=== PATIENT | male | born 1955 | race Caucasian/White ===

== ENCOUNTER 2018-01-02 08:56 | Emergency (ER) | payer MEDICARE, BC ==
--- NOTE | 2018-01-02 09:51 | ER Document Report ---
ED Hand/Wrist Injury - General Chief Complaint: Finger Injury Stated Complaint: FINGER INJURY Time Seen by Provider: 01/02/18 09:50 Mode of Arrival: Ambulatory Information source: Patient Notes: 62-year-old male presents to ED for complaint of injury to his right thumb. He states he was using a table saw and sliced off part of his thumb. Bleeding is controlled at this time. Patient is alert and oriented, pupils equal and react to light, patient is able to speak in full sentences. Respirations are regular and unlabored, and patient is able to walk with the even gait. TRAVEL OUTSIDE OF THE [place] IN LAST 30 DAYS: No - HPI Injury to: Thumb - Part of the end of his thumb cut off with a table saw Onset: Just prior to arrival Where: Home, Outdoors Timing: Still present Quality of pain: Achy Severity: Mild Pain Level: 2 Context: Other - Sliced off part of his thumb with a table saw - Related Data Allergies/Adverse Reactions: clopidogrel bisulfate [From Plavix] Allergy (Verified 06/16/17 23:31) Past Medical History - General Information source: Patient - Social History Smoking Status: Current Every Day Smoker Cigarette use (# per day): Yes - 4 cigs a day family member recently passed Chew tobacco use (# tins/day): No Smoking Education Provided: Yes - 4min Frequency of alcohol use: Social Drug Abuse: None Lives with: Family Family History: Reviewed & Not Pertinent Patient has suicidal ideation: No Patient has homicidal ideation: No - Past Medical History Cardiac Medical History: Reports: Hx Congestive Heart Failure, Hx Coronary Artery Disease, Hx Heart Attack - 5, Hx Hypercholesterolemia, Hx Hypertension, Other - On blood thinner effient Pulmonary Medical History: Reports: None EENT Medical History: Reports: None Neurological Medical History: Reports: Hx Cerebrovascular Accident Endocrine Medical History: Reports: Hx Diabetes Mellitus Type 2 Renal/ Medical History: Reports: None Malignancy Medical History: Reports None GI Medical History: Reports: Hx Gastroesophageal Reflux Disease, Hx Colonoscopy , Hx Endoscopy Musculoskeltal Medical History: Reports Hx Multiple Sclerosis, Reports Hx Musculoskeletal Deformity Skin Medical History: Reports None Psychiatric Medical History: Reports: None Traumatic Medical History: Reports: None Infectious Medical History: Reports: None Past Surgical History: Reports: Hx Cardiac Catheterization - 5, Hx Cholecystectomy, Hx Coronary Stent - 5, Hx Orthopedic Surgery - 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 bone removed from right hand - Immunizations Hx Diphtheria, Pertussis, Tetanus Vaccination: Yes Review of Systems - Review of Systems Constitutional: No symptoms reported EENT: No symptoms reported Cardiovascular: No symptoms reported Respiratory: No symptoms reported Gastrointestinal: No symptoms reported Genitourinary: No symptoms reported Male Genitourinary: No symptoms reported Musculoskeletal: Other - Sliced off the end of his right thumb table saw Skin: Other - Sliced off the end of the right thumb with table saw Hematologic/Lymphatic: No symptoms reported Neurological/Psychological: No symptoms reported -: Yes All other systems reviewed and negative Physical Exam - Vital signs Vitals: Temp Pulse Resp BP Pulse Ox 98.2 F 72 16 137/92 H 96 01/02/18 09:15 01/02/18 09:15 01/02/18 09:15 01/02/18 09:15 01/02/18 09:15 Interpretation: Normal - General General appearance: Appears well, Alert - HEENT Head: Normocephalic, Atraumatic Eyes: Normal Pupils: PERRL - Respiratory Respiratory status: No respiratory distress Chest status: Nontender Breath sounds: Normal Chest palpation: Normal - Cardiovascular Rhythm: Regular Heart sounds: Normal auscultation Murmur: No - Abdominal Inspection: Normal Distension: No distension Bowel sounds: Normal Tenderness: Nontender Organomegaly: No organomegaly - Back Back: Normal, Nontender - Extremities General upper extremity: Normal color, Normal ROM, Normal temperature General lower extremity: Normal inspection, Nontender, Normal color, Normal ROM , Normal temperature, Normal weight bearing. No: Herrera's sign Hand: Tender, Nail injury, No evidence of human bite, No evidence of FB, Other - Placed off the end of his right finger with a table saw - Neurological Neuro grossly intact: Yes Cognition: Normal Orientation: AAOx4 [place] Coma Scale Eye Opening: Spontaneous [place] Coma Scale Verbal: Oriented [place] Coma Scale Motor: Obeys Commands [place] Coma Scale Total: 15 Speech: Normal Motor strength normal: LUE, RUE, LLE, RLE Sensory: Normal - Psychological Associated symptoms: Normal affect, Normal mood - Skin Skin Temperature: Warm Skin Moisture: Dry Skin Color: Normal Course - Re-evaluation Re-evalutation: 01/02/18 11:08 Out of fracture noted on x-ray. Patient was given report of x-ray and discharged home with a dressing to the avulsion injury to his right thumb. Xeroform gauze and then normal guys and then a splint applied to the thumb. Patient was given instructions on cleaning the area and redress them tomorrow and then follow-up with primary doctor the next day. Patient was also sent home with prescription for Keflex. Patient was offered narcotic medication but states he did not need that he will use Tylenol and Motrin for his discomfort. Patient was instructed to elevate the injury. Patient verbalized understanding of instructions and agreement with treatment plan. - Vital Signs Vital signs: Temp Pulse Resp BP Pulse Ox 98.2 F 72 16 137/92 H 96 01/02/18 09:15 01/02/18 09:15 01/02/18 09:15 01/02/18 09:15 01/02/18 09:15 - Diagnostic Test Radiology reviewed: Image reviewed, Reports reviewed Discharge - Discharge Clinical Impression: Avulsion injury right thumb Condition: Stable Disposition: HOME, SELF-CARE Additional Instructions: Avulsion Injury You have an avulsion injury -- a loss of skin which can't be helped by suturing. When large, these injuries can require skin grafting. Smaller defects or shallow avulsions usually heal well with dressings. Keep the dressing clean and dry. If the bandage becomes wet, remove it, blot the area dry, and apply a fresh dressing. Change the dressings every day. Complete healing may take anywhere from 10 days to two months. The healing time depends on the size and depth of the avulsion and on the amount of crushing of underlying tissues. Re-examination by the physician is often necessary. If any signs of infection occur (swelling, redness, increasing tenderness, red streaks, profuse purulent drainage from the avulsion, tender lumps in the armpit or groin above the avulsion, or fever), see your doctor immediately. SOAP CLEANSING: Gently wash the wound daily using a mild soap (like Ivory, Phisoderm, Neutrogena). Use warm water, rubbing gently until all debris, ooze, and crusting have been washed from the wound. Allow to dry briefly (about 10 minutes) after cleaning. Repeat this cleansing at least three times a day for the first two days and then once or twice a day. ANTIBIOTIC OINTMENT PROTECTION: Your wounds are such that dressing them is not practical or optional. After cleansing, you should apply a thin coating of antibiotic ointment ( Bacitracin, not Neosporin) to the wounds at least three times daily. This lessens infection risk, and may decrease the amount of scarring. Use a q-tip or dull butter knife, not your finger, to apply this ointment. Any debris or ooze which builds up in the ointment should be gently rubbed off with a sterile gauze pad. Harder crusting may need to be gently scrubbed off with a clean wash cloth with soap and warm water, perhaps applying a warm, wet wash cloth to the wound for ten minutes first. Development of redness, severe itching, or blistering may mean allergy to the ointment. See the doctor. Cephalexin The antibiotic you've been prescribed is a member of the cephalosporin class. This type of antibiotic covers a wide variety of infections, including those of the skin, lungs, and urinary tract. It's useful for staph infections. This antibiotic is slightly similar to the penicillin family. In rare cases , a person who is allergic to penicillin will also be allergic to this medication. If you have had a severe allergic reaction to penicillin, and have not taken this antibiotic since that time, notify your doctor. Antibiotics which cover many germs ("broad spectrum" antibiotics) are more likely to cause diarrhea or "yeast" infections. Women prone to vaginal yeast problems may suffer an attack after taking this antibiotic. In infants, oral thrush (white spots "stuck" on the cheek) or yeast diaper rash may result. See your doctor if these problems occur. Call at once if you develop itching, hives , shortness of breath, or lightheadedness. Elevate the Injury Because of the nature of your injury, elevation will be helpful to reduce swelling. This also reduces infection risk in wounds. Keep the injury up above the level of your heart for at least the next 48 hours (or longer if the physician recommends it). FOLLOW-UP CARE: Please return in __2___ days for an infection check and dressing change. If you have been referred to another physician for follow-up care, call that physicians office for an appointment as you were instructed. If you experience a significant change in your laceration, or if you are concerned there may be an infection (swelling, redness, drainage, increasing tenderness, red streaks, tender lumps in the armpit or groin above the laceration, or fever) , return to the Emergency Department immediately re-evaluation. Prescriptions: Cephalexin [Cephalexin 500 MG Capsule] 1 cap PO QID #28 cap Forms: Elevated Blood Pressure, Smoking Cessation Education Referrals: CROW BURNS PA-C [Primary Care Provider] - Follow up as needed
--- NOTE | 2018-01-02 10:48 | RADIOLOGY REPORT (SQ) ---
EXAM DESCRIPTION: FINGER RIGHT COMPLETED DATE/TIME: 01/02/2018 10:18 am REASON FOR STUDY: cut right thumb injury to the distal thumb finger tip with table saw, initial coun ter, open wound COMPARISON: None. NUMBER OF VIEWS: Three views. TECHNIQUE: AP, lateral, and oblique images acquired of the right thumb. LIMITATIONS: None. FINDINGS: MINERALIZATION: Normal. BONES: No acute fracture or dislocation. Old nonunited avulsion fracture dorsal base right thumb dis [place] phalanx. SOFT TISSUES: Partial amputation of the right thumb finger tip soft tissues, radial aspect fingernail . No underlying bony injury to the tuft, distal phalanx right thumb. OTHER: No other significant finding. IMPRESSION: Amputation of finger tip soft tissues without underlying defect in the distal tuft, righ t thumb distal phalanx. Old well corticated avulsion fragment off the dorsal base right thumb distal phalanx. COMMENT: SITE OF TRAUMA/COMPLAINT MARKED/STAMP COMPLETED: Yes TECHNICAL DOCUMENTATION: JOB ID: [id number] [employer] All Rights Reserved Reading location - IP/workstation name: [id number]
[2018-01-02] MEDS ORDERED: CEPHALEXIN 500 MG CAPSULE PO ONE (11:04)
[2018-01-02 11:23] VITALS: BP 122/82
== END 2018-01-02 11:17 | disposition home or self-care (01) ==
LOC: ER 08:56
DX: S61.101A Unspecified open wound of right thumb with damage to nail, initial encounter (principal); W29.8XXA Contact with other powered hand tools and household machinery, initial encounter; Y92.009 Unspecified place in unspecified non-institutional (private) residence as the place of occurrence of the external cause; I25.10 Atherosclerotic heart disease of native coronary artery without angina pectoris; I10 Essential (primary) hypertension; I25.2 Old myocardial infarction; E11.9 Type 2 diabetes mellitus without complications; F17.210 Nicotine dependence, cigarettes, uncomplicated; Z71.6 Tobacco abuse counseling; Z88.8 Allergy status to other drugs, medicaments and biological substances
CPT/HCPCS: 99283; 73140; A9270

== ENCOUNTER 2018-12-13 05:42 | Inpatient (IN) | payer MEDICARE, BC ==
[2018-12-13] MEDS ORDERED: LIDOCAINE 2% URO-JET 5 ML KIT MM ONE (06:09)
[2018-12-13 06:18] LABS: HEMATOCRIT 41.3 % (37.9-51.0); HEMOGLOBIN 14.4 g/dL (13.5-17.0); MEAN CORPUSCULAR HEMOGLOBIN 28.4 pg (27.0-33.4); MEAN CORPUSCULAR HGB CONC 34.8 g/dL (32.0-36.0); MEAN CORPUSCULAR VOLUME 82 fl (80-97); PLATELET COUNT 199 10^3/uL (150-450); RED BLOOD COUNT 5.05 10^6/uL (4.35-5.55); RED CELL DISTRIBUTION WIDTH 13.4 % (11.5-14.0); WHITE BLOOD COUNT 5.8 10^3/uL (4.0-10.5)
[2018-12-13 06:22] LABS: INTERNATIONAL RATION (INR) 0.87; PARTIAL THROMBOPLASTIN TIME 32.5 SEC (23.5-35.8)
[2018-12-13 06:26] LABS: PROTHROMBIN TIME 12.3 SEC (11.4-15.4)
[2018-12-13 06:34] LABS: ALANINE AMINOTRANSFERASE 38 U/L (21-72); ALBUMIN 3.9 g/dL (3.5-5.0); ALKALINE PHOSPHATASE 69 U/L (38-126); ANION GAP 10 (5-19); ASPARTATE AMINO TRANSFERASE 29 U/L (17-59); BILIRUBIN,DIRECT 0.2 mg/dL (0.0-0.4); BILIRUBIN,TOTAL 0.6 mg/dL (0.2-1.3); BLOOD UREA NITROGEN 21 mg/dL (7-20); CALCIUM 9.1 mg/dL (8.4-10.2); CARBON DIOXIDE 25 mmol/L (22-30); CHLORIDE 111 mmol/L (98-107); CREATINE KINASE 295 U/L (55-170); GLUCOSE 153 mg/dL (75-110); POTASSIUM 4.1 mmol/L (3.6-5.0); SODIUM 146.1 mmol/L (137-145); TOTAL PROTEIN 6.3 g/dL (6.3-8.2)
--- NOTE | 2018-12-13 06:35 | ER Document Report ---
ED Neuro Symptoms/Deficit - General Chief Complaint: Weakness Stated Complaint: WEAKNESS Time Seen by Provider: 12/13/18 06:09 Primary Care Provider: CROW BURNS PA-C [Primary Care Provider] - Follow up as needed TRAVEL OUTSIDE OF THE [place] IN LAST 30 DAYS: No - HPI Notes: Patient is a 63-year-old male that presents to the emergency department for chief complaint of right arm and leg numbness and weakness. Patient states while sitting at home last night at 10 PM watching TV he had acute onset of right arm and leg numbness. He also states that he was having a hard time doing [id number] with his right arm. His symptoms have been constant and unchanged since onset at 10 PM yesterday. He does report 2 days of intermittent left-sided parietal headaches. He states the headache was mild and throbbing. The headache would last for 1 to 2 hours and then resolved. He currently denies headache. He denies any vision changes or difficulty speaking. He does report history of stroke in the past but denies any chronic deficits. He is on Effient for history of ID with coronary stenting. Patient denies any associated chest pain or difficulty breathing. Past Medical History: MS, hypertension, hyperlipidemia, diabetes, CAD, stroke, ID Past Surgical History: Coronary stenting x3 Social History: Denies tobacco alcohol and drug use Family History: Reviewed and noncontributory for presenting illness Allergies: Reviewed, see documented allergy list. REVIEW OF SYSTEMS: CONSTITUTIONAL : No fever No chills No diaphoresis No recent illness EENT: No vision changes No congestion No sore throat CARDIOVASCULAR: No chest pain No palpitations RESPIRATORY: No shortness of breath No cough No difficulty breathing GASTROINTESTINAL: No abdominal pain No nausea No vomiting No diarrhea GENITOURINARY: No dysuria No hematuria No difficulty urinating MUSCULOSKELETAL: No back pain No leg pain No arm pain SKIN: No rashes No lesions LYMPHATIC: No swollen, enlarged glands. NEUROLOGICAL: No lightheadedness No headache weakness paresthesias PSYCHIATRIC: No anxiety No depression PHYSICAL EXAMINATION: Vital signs reviewed, nursing noted reviewed. GENERAL: Well-appearing, well-nourished and in no acute distress. HEAD: Atraumatic, normocephalic. EYES: Eyes appear normal, extraocular movements intact, sclera anicteric, conjunctiva are normal. ENT: nares patent, oropharynx clear without exudates. Moist mucous membranes. NECK: Normal range of motion, supple without lymphadenopathy LUNGS: Breath sounds clear to auscultation bilaterally and equal. No wheezes rales or rhonchi. HEART: Regular rate and rhythm without murmurs ABDOMEN: Soft, nontender, normoactive bowel sounds. No rebound, guarding, or rigidity. No masses appreciated. EXTREMITIES: Nontender, good range of motion, no pitting or edema. NEUROLOGICAL:NIH=3, Moves all extremities spontaneously. Right arm ataxia, decreased sensation in right arm and right leg, right leg weakness PSYCH: Normal mood, normal affect. SKIN: Warm, Dry, normal turgor, no rashes or lesions noted on exposed skin - Related Data Allergies/Adverse Reactions: clopidogrel bisulfate [From Plavix] Allergy (Verified 06/16/17 23:31) Past Medical History - Social History Smoking Status: Never Smoker Family History: Reviewed & Not Pertinent - Past Medical History Cardiac Medical History: Reports: Hx Congestive Heart Failure, Hx Coronary Artery Disease, Hx Heart Attack - 5, Hx Hypercholesterolemia, Hx Hypertension Pulmonary Medical History: Reports: Hx COPD Neurological Medical History: Reports: Hx Cerebrovascular Accident Endocrine Medical History: Reports: Hx Diabetes Mellitus Type 2 Renal/ Medical History: Denies: Hx Peritoneal Dialysis GI Medical History: Reports: Hx Gastroesophageal Reflux Disease, Hx Colonoscopy, Hx Endoscopy Musculoskeletal Medical History: Reports Hx Multiple Sclerosis, Reports Hx Musculoskeletal Deformity Past Surgical History: Reports: Hx Cardiac Catheterization - 5, Hx Cardiac Surgery - stents placed, Hx Cholecystectomy, Hx Coronary Stent - 5, Hx Orthopedic Surgery - 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 bone removed from right hand - Immunizations Hx Diphtheria, Pertussis, Tetanus Vaccination: Yes Course - Re-evaluation Re-evalutation: 12/13/18 06:34 Vitals reviewed. Nursing notes reviewed. Patient symptoms started at 10 PM yesterday and he is outside the window for TPA. He does have an NIH of 3 concerning for new acute stroke. EKG shows no STEMI. 12/13/18 07:[address] scan shows no intracranial hemorrhage or other acute pathology. The remainder of his work-up is unremarkable. He was given aspirin for concern of possible stroke. Patient's symptoms on reevaluation are unchanged. He will be admitted to the hospital for further stroke work-up. Patient is in agreement with this plan of care. His care was discussed with Dr. Mario who accepted admission. Laboratory 12/13/18 12/13/18 12/13/18 06:00 06:00 06:00 WBC 5.8 RBC 5.05 Hgb 14.4 Hct 41.3 MCV 82 MCH 28.4 MCHC 34.8 RDW 13.4 Plt Count 199 Total Counted 100 Seg Neutrophils % Not Reportable Seg Neuts % (Manual) 82 H Lymphocytes % Not Reportable Lymphocytes % (Manual) 4 L Monocytes % Not Reportable Monocytes % (Manual) 10 Eosinophils % Not Reportable Eosinophils % (Manual) 4 Basophils % Not Reportable Basophils % (Manual) 0 Absolute Neutrophils Not Reportable Abs Neuts (Manual) 4.8 Absolute Lymphocytes Not Reportable Abs Lymphs (Manual) 0.2 L Absolute Monocytes Not Reportable Abs Monocytes (Manual) 0.6 Absolute Eosinophils Not Reportable Absolute Eos (Manual) 0.2 Absolute Basophils Not Reportable Abs Basophils (Manual) 0.0 Platelet Comment ADEQUATE RBC Morph Comment MN PT 12.3 INR 0.87 APTT 32.5 Sodium 146.1 H Potassium 4.1 Chloride 111 H Carbon Dioxide 25 Anion Gap 10 BUN 21 H Creatinine 1.13 Est GFR ( Amer) > 60 Est GFR (Non-Af Amer) > 60 Glucose 153 H POC Glucose Calcium 9.1 Total Bilirubin 0.6 Direct Bilirubin 0.2 Neonat Total Bilirubin Not Reportable Neonat Direct Bilirubin Not Reportable Neonat Indirect Bili Not Reportable AST 29 ALT 38 Alkaline Phosphatase 69 Creatine Kinase 295 H CK-MB (CK-2) Troponin I Total Protein 6.3 Albumin 3.9 12/13/18 12/13/18 06:00 06:03 WBC RBC Hgb Hct MCV MCH MCHC RDW Plt Count Total Counted Seg Neutrophils % Seg Neuts % (Manual) Lymphocytes % Lymphocytes % (Manual) Monocytes % Monocytes % (Manual) Eosinophils % Eosinophils % (Manual) Basophils % Basophils % (Manual) Absolute Neutrophils Abs Neuts (Manual) Absolute Lymphocytes Abs Lymphs (Manual) Absolute Monocytes Abs Monocytes (Manual) Absolute Eosinophils Absolute Eos (Manual) Absolute Basophils Abs Basophils (Manual) Platelet Comment RBC Morph Comment PT INR APTT Sodium Potassium Chloride Carbon Dioxide Anion Gap BUN Creatinine Est GFR ( Amer) Est GFR (Non-Af Amer) Glucose POC Glucose 145 H Calcium Total Bilirubin Direct Bilirubin Neonat Total Bilirubin Neonat Direct Bilirubin Neonat Indirect Bili AST ALT Alkaline Phosphatase Creatine Kinase CK-MB (CK-2) 2.97 Troponin I < 0.012 Total Protein Albumin Chest X-Ray 12/13/18 06:09 IMPRESSION: No acute cardiopulmonary process copyright 2010 [employer]- All Rights Reserved Head CT 12/13/18 06:09 IMPRESSION: 1. No acute intracranial abnormality by CT criteria. This exam was performed according to our departmental dose-optimization program, which includes automated exposure control, adjustment of the mA and/or kV according to patient size and/or use of iterative reconstruction technique. - Laboratory Result Diagrams: 12/13/18 06:00 12/13/18 06:00 Laboratory results interpreted by me: 12/13/18 06:03 POC Glucose 145 H - EKG Interpretation by Me Additional EKG results interpreted by me: 12/13/18 06:34 Interpreted by myself [id number]: Normal sinus rhythm, rate 77, normal axis, no STEMI, old inferior infarct ED NIH Stroke Scale - NIH Stroke Scale *: 1. NIH scale should be completed with appropriate accompanying assessment tools. *: 2. The NIH should reflect what the patient is capable of doing and should not be coached by the clinician. 1a. Level of Consciousness: 0=Alert;keenly responsive -: 1=Drowsy -: 2=Obtunded -: 3=Coma/unresponsive or reflex to noxious stimuli. 1a. Responses: 0 1b. Orientation Questions: a. What month is it? -: b. How old are you? -: 0=Answers both questions correctly. -: 1=Answers one question correctly or patient is intubated or has orotracheal trauma. -: 2=Answers neither question correctly. 1b. Responses: 0 1c. Response to commands: a. Open and close eyes? -: b. Plant Electrician and release hand? -: Credit is given despite weakness. Demonstration of task is permitted. Substitute command if hands cannot be used. -: 0=Performs both tasks correctly -: 1=Performs one task correctly -: 2=Performs neither task correctly 1c. Responses: 0 2. Gaze: Establish eye contact and instruct patient to "Follow my finger" -: 0=Normal -: 1=Partial gaze palsy. Gaze is abnormal in one or both eyes, but where forced deviation or total gaze paresis is not present. -: 2=Forced deviation or total gaze paresis. 2. Responses: 0 3. Visual Limon: Sees fingers in all four quadrants. -: 0=No visual loss. -: 1=Partial hemianopsia. -: 2=Complete hemianopsia. -: 3=Bilateral hemianopsia (including Cortical blindness) 3. Responses: 0 4. Facial Movement: Instruct patient to: -: a. Show me your teeth -: b. Raise your eyebrows -: c. Close your eyes -: d. Smile -: 0=Normal symmetrical movement -: 1=Minor paralysis (flattened nasolabial fold, asymmetry on smiling). -: 2=Partial paralysis (total or near total paralysis of lower face). -: 3=Complete paralysis of upper and lower face 4. Responses: 0 5. Motor functions (left arm): Alternate sides and extend each arm with palms down (90 degrees if sitting or 45 degrees for supine). -: 0=No drift;limb holds for full 10 seconds. -: 1=Drift; limb holds but drifts down before full 10 seconds, but does not hit bed. -: 2=Some effort against gravity; limb cannot get to or maintain position. -: 3=No effort against gravity; limb falls. -: 4=No movement. -: UN=Amputation, joint fusion, explain in comments. 5. Responses (left arm): 0 5. Motor Functions (right arm): Alternate sides and extend each arm with palms down (90 degrees if sitting or 45 degrees for supine). -: 0=No drift;limb holds for full 10 seconds. -: 1=Drift; limb holds but drifts down before full 10 seconds, but does not hit bed. -: 2=Some effort against gravity; limb cannot get to or maintain position. -: 3=No effort against gravity; limb falls. -: 4=No movement. -: UN=Amputation, joint fusion, explain in comments. 5. Responses (right arm): 0 6. Motor Functions (left leg): With patient lying supine, alternate sides and extend each leg (30 degrees always while supine). -: 0=No drift, leg holds position for full 5 seconds -: 1=Drift; leg falls before full 5 seconds but does not hit bed. -: 2=Some effort against gravity, leg falls to bed but some effort against gravity. -: 3=No effort against gravity, leg falls to bed immediately. -: 4=No movement. -: UN=Amputation, joint fusion; explain in comments. 6. Responses (left leg): 0 6. Motor Functions (right leg): With patient lying supine, alternate sides and extend each leg (30 degrees always while supine). -: 0=No drift, leg holds position for full 5 seconds -: 1=Drift; leg falls before full 5 seconds but does not hit bed. -: 2=Some effort against gravity, leg falls to bed but some effort against gravity. -: 3=No effort against gravity, leg falls to bed immediately. -: 4=No movement. -: UN=Amputation, joint fusion; explain in comments. 6. Responses (right leg): 1 7. Limb Ataxia: With eyes open instruct patient to: -: a. "Touch your finger to your nose". -: b. "Touch your heel to your borges" -: 0=Absent -: 1=Present in one limb. -: 2=Present in two limbs. -: UN=Amputation or joint fusion; explain in comments. 7. Responses: 1 7. If ataxia present choose as appropriate: Right arm 8. Sensory: Test sensation using pinprick or noxious stimuli. Test as many body parts as possible. -: 0=Normal;no sensory loss -: 1=Mile to moderate sensory loss (patient feels pin prick but is less sharp on affected side). -: 2=Severe or total sensory loss. 8. Responses: 1 9. Best Language: Instruct patient to: -: a. "Describe what you see in this picture." -: b. "Name the items in this picture." -: c. "Read these sentences." -: 0=No aphasia, normal -: 1=Mild to moderate aphasia. -: 2=Severe aphasia -: 3=Mute, global aphasia, no usable speech or auditory comprehension. 9. Responses: 0 10. Articulation, Dysarthia: Instruct patient to: -: "Read these words" or "Repeat these words" -: 0=Normal -: 1=Mild to moderate; patient may slur some words but can be understood without difficulty. -: 2=Severe; patients speech so slurred as to be unintelligible in the absence of dysphasia. -: UN=Intubated or other physical barrier, explain in comments. 10. Responses: 0 11. Extinction or inattention: 0=No abnormality -: 1= Visual, tactile, auditory, spatial, or personal inattention or extinction to bilateral simulation in one or the sensory modalities. -: 2=Profound hilda-inattention or hilda-inattention to more than one modality; does not recognize own hand. 11. Responses: 0 Total Score: 3 Discharge - Discharge Clinical Impression: Right sided numbness, Ataxia of right upper extremity, Right leg weakness Condition: Stable Disposition: ADMITTED INPATIENT Admitting Provider: Fabiano (Hospitalist) Unit Admitted: IMCU Referrals: CROW BURNS PA-C [Primary Care Provider] - Follow up as needed
[2018-12-13 06:45] LABS: ABSOLUTE LYMPHOCYTES# (MANUAL) 0.2 10^3/uL (0.5-4.7); ABSOLUTE MONOCYTES # (MANUAL) 0.6 10^3/uL (0.1-1.4); ABSOLUTE NEUTROPHILS# (MANUAL) 4.8 10^3/uL (1.7-8.2); BASOPHILS % (MANUAL) 0 % (0-2); EOSINOPHILS % (MANUAL) 4 % (0-6); LYMPHOCYTES % (MANUAL) 4 % (13-45); MONOCYTES % (MANUAL) 10 % (3-13); PLATELET COMMENT ADEQUATE; RBC MORPHOLOGY COMMENT MN; SEGMENTED NEUTROPHILS % (MAN) 82 % (42-78); TOTAL CELLS COUNTED 100
[2018-12-13 06:46] LABS: CREATINE KINASE MB 2.97 ng/mL (<4.55)
[2018-12-13 06:49] LABS: TROPONIN I < 0.012 ng/mL
--- NOTE | 2018-12-13 06:58 | RADIOLOGY REPORT (SQ) ---
EXAM DESCRIPTION: XR CHEST 1 VIEW COMPLETED DATE/TME: 12/13/2018 06:09 CLINICAL HISTORY: 63 years, Male, right side numbness COMPARISON: 07/25/2012 chest NUMBER OF VIEWS: 1 TECHNIQUE: Portable chest LIMITATIONS: None. FINDINGS: Heart size is normal. Mild elevation right hemidiaphragm. Lungs are clear. No pneumothorax IMPRESSION: No acute cardiopulmonary process copyright 2010 [employer]- All Rights Reserved
--- NOTE | 2018-12-13 06:59 | RADIOLOGY REPORT (SQ) ---
EXAM DESCRIPTION: CT HEAD WITHOUT IV CONTRAST COMPLETED DATE/TME: 12/13/2018 06:09 CLINICAL HISTORY: right side numbness COMPARISON: None available TECHNIQUE: Axial CT of the head obtained from the skull apex to the skull base without contrast. FINDINGS: No acute intracranial hemorrhage identified. No mass, mass effect, shift of the midline, abnormal extra-axial fluid collection or CT evidence of acute ischemic change identified. The ventricular system and sulcal spaces are mildly enlarged compatible with mild cerebral atrophy. Scattered areas of hypodensity throughout the supratentorial white matter are nonspecific and may be related to chronic small vessel ischemic change. Focal area of encephalomalacia involving the left cerebellum suggesting remote infarction. Remote lacunar type infarction involving the right caudate nucleus. The visualized paranasal sinuses and the mastoids are clear. No skull fracture identified. Visualized orbits and globes are unremarkable. Atherosclerotic calcification of the intracranial internal carotid arteries. DLP: 1096.98 mGy-cm IMPRESSION: 1. No acute intracranial abnormality by CT criteria. This exam was performed according to our departmental dose-optimization program, which includes automated exposure control, adjustment of the mA and/or kV according to patient size and/or use of iterative reconstruction technique.
[2018-12-13] MEDS ORDERED: ASPIRIN 325 MG TABLET PO ONE (07:09)
[2018-12-13] MEDS ORDERED: ONDANSETRON 4 MG TAB.RAPDIS PO PRN (08:41)
[2018-12-13] MEDS ORDERED: ACETAMINOPHEN 325 MG TABLET PO PRN (08:41)
[2018-12-13] MEDS ORDERED: ONDANSETRON HCL INJ/PF 4 MG/2 ML SDV IV PRN (08:41)
[2018-12-13] MEDS ORDERED: NITROGLYCERIN 0.4 MG/TAB 25 TAB/BOTTLE SL PRN (09:05)
[2018-12-13] MEDS ORDERED: GLUCAGON,HUMAN RECOMB 1 MG INJ IM PRN (09:06)
[2018-12-13] MEDS ORDERED: DEXTROSE 40% GEL 15 GM TUBE PO PRN ×2 (09:06)
[2018-12-13] MEDS ORDERED: DEXTROSE 50%-WATER 25 GM/50 ML DISP.SYRIN IV PRN ×2 (09:06)
[2018-12-13] MEDS ORDERED: TIZANIDINE HCL 4 MG TABLET PO PRN (09:07)
[2018-12-13] MEDS ORDERED: FUROSEMIDE 40 MG TABLET PO SCH (10:00)
[2018-12-13] MEDS ORDERED: METOPROLOL SUCCINATE PO SCH (10:00)
[2018-12-13] MEDS ORDERED: ASPIRIN 81 MG TABLET, CHEWABLE PO SCH (10:00)
[2018-12-13] MEDS ORDERED: [UNRECOGNIZED DRUG - OTHER] PO SCH ×2 (10:00→19:00)
[2018-12-13] MEDS: METFORMIN HCL 500 MG TABLET PO SCH (10:10)
[2018-12-13] MEDS: ASPIRIN 81 MG TABLET, ENT COATED PO SCH (10:10)
[2018-12-13] MEDS: LOSARTAN POTASSIUM 50 MG TABLET PO SCH (10:10)
[2018-12-13] MEDS: FLUOXETINE HCL 20 MG CAPSULE PO SCH (10:10)
[2018-12-13] MEDS: METOPROLOL SUCCINATE 50 MG TAB.SR.24H PO SCH (10:10)
[2018-12-13] MEDS: POTASSIUM CHLORIDE 20 MEQ PACKET PO SCH (10:10)
[2018-12-13] MEDS: FUROSEMIDE 40 MG TABLET PO SCH (10:23)
[2018-12-13] MEDS ORDERED: PRASUGREL HCL 10 MG TABLET PO SCH ×2 (10:30→11:00)
--- NOTE | 2018-12-13 12:13 | RADIOLOGY REPORT (SQ) ---
EXAM DESCRIPTION: MRI HEAD WITHOUT COMPLETED DATE/TIME: 12/13/2018 11:58 am REASON FOR STUDY: Acute CVA COMPARISON: CT brain 09/30/2008, 12/13/2018 TECHNIQUE: Multiplanar imaging includes non-contrasted T1, T2, FLAIR, and diffusion with ADC map seq uences. Images stored on PACS. LIMITATIONS: None. FINDINGS: ANATOMY: No developmental anomalies. Normal vascular flow voids. Pituitary fossa normal. CSF SPACES: Normal in size and contour. No hemorrhage. CEREBRUM: There is moderate white matter disease with increased FLAIR/ T2 signal in the deep perivent ricular white matter from patient's known multiple sclerosis. No acute demyelinating plaques are addison pected on the diffusion-weighted images. Old lacunar infarcts are present in the left thalamus, bilateral caudate, left lateral basal ganglia. No MR evidence of acute ischemic change, acute intracranial hemorrhage, mass effect, or midline hayes ft. POSTERIOR FOSSA: Old infarct in the left posterior inferior cerebellar artery distribution, inferior left cerebellar hemisphere on axial image 8. Moderate chronic small vessel ischemic change in the mi d yan axial T2 image 11. No acute ischemic change or acute demyelinating process in the posterior fo ssa. DIFFUSION IMAGING: Negative for acute or sub-acute infarction. ORBITS: No masses. Globes normal. PARANASAL SINUSES: No fluid levels. Mucosa normal. OTHER: No other significant finding. IMPRESSION: Old left inferior cerebellar infarct Old lacunar infarcts in the left thalamus, bilateral caudate, left lateral basal ganglia. Moderate s mall vessel disease in the mid yan. Multiple deep periventricular bifrontal and biparietal white matter lesions worrisome for a mass. No acute white matter lesions on today's imaging EVIDENCE OF ACUTE STROKE: NO. TECHNICAL DOCUMENTATION: JOB ID: [id number] [employer]- All Rights Reserved Reading location - IP/workstation name: [email or web address]
[2018-12-13] MEDS: INSULIN LISPRO 100 UNIT/ML 3 ML VIAL SUBCUT SCH ×3 (12:25→22:04)
[2018-12-13] MEDS: HEPARIN SOD (PORCINE) 5,000 UNIT/ML 1 ML SYRINGE SUBCUT SCH ×2 (14:03→22:05)
--- NOTE | 2018-12-13 15:15 | RADIOLOGY REPORT (SQ) ---
EXAM DESCRIPTION: CAROTID DOPPLER COMPLETED DATE/TIME: 12/13/2018 2:59 pm REASON FOR STUDY: Acute CVA, Hx diffuse atherosclerosis COMPARISON: None. TECHNIQUE: Grayscale ultrasound, Doppler velocity and spectra, and color Doppler images acquired of the extra-cranial carotid and vertebral arteries. Images stored on PACS. LIMITATIONS: None. FINDINGS: RIGHT CAROTID CCA Velocities: Within normal limits. ICA Velocities Peak systolic 0.70 m/s. End diastolic 0.18 m/s. Proximal ICA/CCA peak systolic ratio 0.96. Spectra normal. No significant plaque. LEFT CAROTID CCA Velocities: Within normal limits. ICA Velocities Peak systolic 0.93 m/s. End diastolic 0.28 m/s. Proximal ICA/CCA peak systolic ratio 0.96. Spectra normal. No significant plaque. VERTEBRAL ARTERIES: Antegrade flow. Normal waveforms. SUBCLAVIAN ARTERIES: No finding. OTHER: No other significant finding. IMPRESSION: NO HEMODYNAMICALLY SIGNIFICANT STENOSIS. COMMENT: Quality ID #[id number]: Velocity criteria are extrapolated from the diameter data as defined by t he Society of Radiologists in Ultrasound Consensus Conference. Radiology 2003: 229; 340-346. TECHNICAL DOCUMENTATION: JOB ID: [id number] [employer]- All Rights Reserved Reading location - IP/workstation name: [email or web address]
--- NOTE | 2018-12-13 20:39 | PDOC H&P ---
History of Present Illness Admission Date/PCP: 12/13/18 07:52 CROW BURNS PA-C Patient complains of: Right-sided weakness and numbness History of Present Illness: HARRISON CONDE is a 63 year old male who has been having headaches on the left. He lost sensation in his right arm and right leg abruptly. He had difficulty walking. He also had discoordination with his right arm. He has long-standing right facial numbness from his multiple sclerosis. He has a history of stroke in the past and with his symptoms presented to the emergency department. His strength began to improve slowly. He still has a sense of decreased sensation on the right and his arm and leg feel heavy. He denied vomiting but did have nausea this morning. He has had 5 myocardial infarctions and did not report any symptoms consistent with heart disease. With working diagnosis of ischemic stroke he was referred to the hospitalist service for admission. Past Medical History Cardiac Medical History: Reports: Congestive Heart Failure, Coronary Artery Disease, Myocardial Infarction - 5, Hyperlipidema, Hypertension Pulmonary Medical History: Reports: Chronic Obstructive Pulmonary Disease (COPD), Other - Sarcoidosis EENT Medical History: Reports: Other - Labyrinthitis with vertigo Neurological Medical History: Reports: Ischemic CVA, Multiple Sclerosis Endocrine Medical History: Reports: Diabetes Mellitus Type 2 GI Medical History: Reports: Gastroesophageal Reflux Disease Skin Medical History: Reports: Psoriasis Psychiatric Medical History: Reports: Tobacco Dependency Past Surgical History Past Surgical History: Reports: Cardiac Catheterization - 5, Cholecystectomy, Coronary Stent - 5, Orthopedic Surgery - 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 bone removed from right hand Social History Information Source: Patient, Relative - Patient's Lives with: Spouse/Significant other Smoking Status: Current Some Day Smoker - Heavy smoker in the past. Despite his history he still has an occasional cigarette. Frequency of Alcohol Use: None Hx Recreational Drug Use: No Hx Prescription Drug Abuse: No - Advance Directive Resuscitation Status: Do Not Resuscitate Surrogate healthcare decision maker:: His is the designated decision maker. He does not have a living will but wishes to be an organ donor. Family History Family History: CAD - Significant for diffuse and severe premature coronary artery disease with early , Malignancy Parental Family History Reviewed: Yes Children Family History Reviewed: Yes Sibling(s) Family History Reviewed.: Yes Medication/Allergy Home Medications: Aspirin [Aspirin 81 mg Chewable Tablet] 81 mg PO DAILY 12/13/18 Fingolimod HCl [Gilenya] 0.5 mg PO DAILY 12/13/18 Fluoxetine HCl [Prozac 20 mg Capsule] 20 mg PO DAILY 12/13/18 Furosemide [Lasix 40 mg Tablet] 40 mg PO QAM 12/13/18 Liraglutide [Victoza 2-Ad] 1.8 mg SQ DAILY 12/13/18 Losartan Potassium [Cozaar 50 mg Tablet] 50 mg PO DAILY 12/13/18 Metformin HCl [Glucophage] 500 mg PO QAM 12/13/18 Metoprolol Succinate [Toprol XL 100 mg Tablet] 100 mg PO DAILY 12/13/18 Omeprazole 20 mg PO Q6AM 12/13/18 Potassium Chloride [Klor-Con M20] 20 meq PO DAILY 12/13/18 Prasugrel HCl [Effient 10 mg Tablet] 10 mg PO DAILY 12/13/18 Rosuvastatin Calcium [Crestor 20 mg Tablet] 20 mg PO DAILY 12/13/18 Tizanidine HCl [Zanaflex 4 Mg Tablet] 4 mg PO TIDP PRN 12/13/18 Allergies/Adverse Reactions: clopidogrel bisulfate [From Plavix] Allergy (Verified 06/16/17 23:31) Review of Systems Constitutional: PRESENT: headache(s). ABSENT: chills, fever(s) Eyes: ABSENT: visual disturbances Ears: ABSENT: hearing changes Nose, Mouth, and Throat: ABSENT: mouth pain, sore throat Cardiovascular: ABSENT: chest pain, edema, palpitations Respiratory: ABSENT: cough, dyspnea, hemoptysis Gastrointestinal: ABSENT: abdominal pain, constipation, diarrhea, heartburn, hematochezia Genitourinary: ABSENT: dysuria, hematuria Musculoskeletal: ABSENT: deformity, muscle weakness Integumentary: PRESENT: other - Psoriasis right knee Neurological: PRESENT: abnormal gait - By patient report. He staggers., paresthesias - Decreased sensation right arm and leg. ABSENT: abnormal speech, memory loss, vertigo Psychiatric: ABSENT: anxiety, depression, hallucinations Physical Exam Vital Signs: Temp Pulse Resp BP Pulse Ox 98.0 F 78 14 150/77 H 99 12/13/18 05:53 12/13/18 06:14 12/13/18 08:01 12/13/18 08:01 12/13/18 08:01 Intake & Output 0412/13/18 12/14/18 06:59 06:59 06:59 Weight 115.666 kg General appearance: PRESENT: no acute distress, cooperative, obese, well- developed Head exam: PRESENT: atraumatic, normocephalic Eye exam: PRESENT: conjunctiva pink, EOMI. ABSENT: nystagmus, scleral icterus Ear exam: PRESENT: normal external ear exam Mouth exam: PRESENT: dry mucosa, neck supple, tongue midline Neck exam: PRESENT: full ROM. ABSENT: carotid bruit, JVD, lymphadenopathy Respiratory exam: PRESENT: clear to auscultation [place], symmetrical, unlabored. ABSENT: accessory muscle use, rales, rhonchi, tachypnea, wheezes Cardiovascular exam: PRESENT: RRR, +S1, +S2, systolic murmur - 2/6 Pulses: PRESENT: normal radial pulses, +1 pedal pulses bilateral Vascular exam: PRESENT: normal capillary refill GI/Abdominal exam: PRESENT: normal bowel sounds, soft. ABSENT: distended, tenderness Rectal exam: PRESENT: deferred Gentrourinary exam: ABSENT: indwelling catheter Extremities exam: ABSENT: joint swelling, pedal edema Musculoskeletal exam: PRESENT: full ROM, normal inspection Neurological exam: PRESENT: alert, awake, oriented to person, oriented to place, oriented to time, oriented to situation, CN II-XII grossly intact, motor sensory deficit - Slightly decreased sensation over the right abdomen arm and leg. Left sensation intact. Strength 5/5 right plantar and dorsiflexion. Able to raise leg off the bed without difficulty. Excellent wildlife photographer strength bilaterally. Psychiatric exam: PRESENT: appropriate affect, normal mood. ABSENT: agitated, anxious Focused psych exam: ABSENT: delusional, restlessness Skin exam: PRESENT: other - Psoriasis plaque right knee. ABSENT: jaundice Results Laboratory Results: 12/13/18 06:00 12/13/18 06:00 12/13/18 12/13/18 06:00 06:00 WBC 5.8 RBC 5.05 Hgb 14.4 Hct 41.3 MCV 82 MCH 28.4 MCHC 34.8 RDW 13.4 Plt Count 199 Seg Neutrophils % Not Reportable Lymphocytes % Not Reportable Monocytes % Not Reportable Eosinophils % Not Reportable Basophils % Not Reportable Absolute Neutrophils Not Reportable Absolute Lymphocytes Not Reportable Absolute Monocytes Not Reportable Absolute Eosinophils Not Reportable Absolute Basophils Not Reportable Sodium 146.1 H Potassium 4.1 Chloride 111 H Carbon Dioxide 25 Anion Gap 10 BUN 21 H Creatinine 1.13 Est GFR ( Amer) > 60 Est GFR (Non-Af Amer) > 60 Glucose 153 H Calcium 9.1 Total Bilirubin 0.6 AST 29 ALT 38 Alkaline Phosphatase 69 Total Protein 6.3 Albumin 3.9 12/13/18 12/13/18 06:00 06:00 Creatine Kinase 295 H CK-MB (CK-2) 2.97 Troponin I < 0.012 Impressions: Chest X-Ray 12/13/18 06:09 IMPRESSION: No acute cardiopulmonary process copyright 2010 [employer]- All Rights Reserved Head CT 12/13/18 06:09 IMPRESSION: 1. No acute intracranial abnormality by CT criteria. This exam was performed according to our departmental dose-optimization program, which includes automated exposure control, adjustment of the mA and/or kV according to patient size and/or use of iterative reconstruction technique. Assessment and Plan - Diagnosis (1) Acute ischemic left MCA stroke Is this a current diagnosis for this admission?: Yes Plan: The patient has symptoms consistent with a left-sided stroke. CT scan showed no acute bleed. I will order an MRI scan. He is already on 2 antiplatelet regimens. He is supposed to see his neurologist tomorrow. If he is stable consider discharge to keep his follow-up visit or reschedule his appointment. (2) Systolic congestive heart failure Qualifiers: Heart failure chronicity: chronic Qualified Code(s): I50.22 - Chronic systolic (congestive) heart failure Is this a current diagnosis for this admission?: Yes Plan: BUN and sodium are slightly elevated. Will decrease furosemide to 20 mg temporarily. Monitor electrolytes. Currently heart failure is well controlled. He states he has a history of CHF, cardiomegaly and coronary artery disease. No echocardiogram is available locally at this time. (3) Coronary artery disease Qualifiers: Coronary Disease-Associated Artery/Lesion type: [place] artery [place] vs. transplanted heart: [place] heart Associated angina: without angina Qualified Code(s): I25.10 - Atherosclerotic heart disease of [place] coronary artery without angina pectoris Is this a current diagnosis for this admission?: Yes Plan: Patient has history of 5 myocardial infarctions with multiple stents. He is nev er had bypass surgery. He reports history of 3 cardiac issues. He believes they are congestive heart failure, enlarged heart and his coronary disease. We will continue his current medication regimen (4) Hypertension Qualifiers: Hypertension type: essential hypertension Qualified Code(s): I10 - Essential (primary) hypertension Is this a current diagnosis for this admission?: Yes Plan: Continue current medication regimen. Keep systolic blood pressure less than 140 and diastolic less than 100 (5) Hypercholesteremia Is this a current diagnosis for this admission?: Yes Plan: Continue statin therapy (6) Diabetes mellitus type 2 in obese Is this a current diagnosis for this admission?: Yes Plan: He is on metformin and Victoza at home. We will continue his metformin and I will institute a sliding scale at this time. (7) Multiple sclerosis Is this a current diagnosis for this admission?: Yes Plan: He is on Gilenya 500 mg daily. As we do not carry this around in order that the patient may continue to use this for his multiple sclerosis. As noted above he has a follow-up appointment with neurology tomorrow we will see if we can get him to keep that appointment. (8) Ataxia of right upper extremity Is this a current diagnosis for this admission?: Yes Plan: Per the patient report this is improved. He has good strength. Still feels a sense of heaviness. Continue current regimen. I have ordered therapy to evaluate the patient. (9) Right leg weakness Is this a current diagnosis for this admission?: Yes Plan: He actually has good strength in the leg. He does report an ongoing sense of heaviness. I did not ambulate the patient but I have asked therapy to evaluate. (10) Right sided numbness Is this a current diagnosis for this admission?: Yes Plan: We did discuss the fact that this could be his multiple sclerosis. It is hard to know. The sensory deficit is very limited. He has had numbness on the right side of his face from his multiple sclerosis for many years. We will continue his current medication and monitor closely. (11) Obesity (BMI 30-39.9) Is this a current diagnosis for this admission?: Yes Plan: Encourage weight loss and exercise. He will be on a cardiac diabetic diet. With his family history his obesity is a significant comorbidity. - Time Time Spent with patient: 75 minutes Time Spent with patient: 35 or more minutes Smoking Cessation Education: 3 to 10 minutes Medications reviewed and adjusted accordingly: Yes Anticipated discharge: Home - Inpatient Certification Based on my medical assessment, after consideration of the patient's comorbidities, presenting symptoms, or acuity I expect that the services needed warrant INPATIENT care.: Yes I certify that my determination is in accordance with my understanding of Medicare's requirements for reasonable and necessary INPATIENT services [42 CFR 412.3e].: Yes Medical Necessity: Need Close Monitoring Due to Risk of Patient Decompensation, Need For Continuous Telemetry Monitoring, Risk of Complication if Not Cared For in Hospital
[2018-12-13] MEDS ORDERED: MELATONIN 3 MG TABLET PO SCH (22:00)
[2018-12-13] MEDS ORDERED: ATORVASTATIN CALCIUM 80 MG TABLET PO SCH (22:00)
--- NOTE | 2018-12-13 23:07 | EKG REPORT ---
SEVERITY:- ABNORMAL ECG - SINUS RHYTHM INFERIOR INFARCT, OLD ANTEROLATERAL INFARCT, OLD : Confirmed by: Shwetha Shafer 13-Dec-2018 23:05:58
[2018-12-14] MEDS: HEPARIN SOD (PORCINE) 5,000 UNIT/ML 1 ML SYRINGE SUBCUT SCH (05:25)
[2018-12-14] MEDS ORDERED: PANTOPRAZOLE SODIUM 40 MG TABLET.DR PO SCH (06:00)
[2018-12-14] MEDS: INSULIN LISPRO 100 UNIT/ML 3 ML VIAL SUBCUT SCH (08:25)
[2018-12-14] MEDS: FUROSEMIDE 40 MG TABLET PO SCH (08:35)
[2018-12-14 08:43] VITALS: BP 115/72
[2018-12-14] MEDS: LOSARTAN POTASSIUM 50 MG TABLET PO SCH (09:17)
[2018-12-14] MEDS: ASPIRIN 81 MG TABLET, ENT COATED PO SCH (09:17)
[2018-12-14] MEDS: POTASSIUM CHLORIDE 20 MEQ PACKET PO SCH (09:17)
[2018-12-14] MEDS: METOPROLOL SUCCINATE 50 MG TAB.SR.24H PO SCH (09:18)
[2018-12-14] MEDS: METFORMIN HCL 500 MG TABLET PO SCH (09:18)
[2018-12-14] MEDS: FLUOXETINE HCL 20 MG CAPSULE PO SCH (09:18)
--- NOTE | 2018-12-14 17:09 | PDOC DISCHARGE SUMMARY ---
General - Admit/Disc Date/PCP Admission Date/Primary Care Provider: 12/13/18 07:52 CROW BURNS PA-C Discharge Date: 12/14/18 - Discharge Diagnosis (1) Multiple sclerosis Is this a current diagnosis for this admission?: Yes Summary: Had some right-sided alteration in sensation and transient right-sided weakness. MRI was negative, has multiple white matter lesions on the brain, none of which appeared new. Has follow-up today with his neurologist in [place]. (2) Coronary artery disease Is this a current diagnosis for this admission?: Yes Summary: Stable, managed with his home medications (3) Diabetes mellitus type 2 in obese Is this a current diagnosis for this admission?: Yes Summary: Stable, managed with his home medications (4) Obesity (BMI 30-39.9) Is this a current diagnosis for this admission?: Yes Summary: Strongly encouraged lifestyle modification - Additional Information Resuscitation Status: Do Not Resuscitate Discharge Diet: Cardiac, Diabetic Discharge Activity: Supervised Activity Home Medications: Aspirin [Aspirin 81 mg Chewable Tablet] 81 mg PO DAILY 12/13/18 Fingolimod HCl [Gilenya] 0.5 mg PO DAILY 12/13/18 Fluoxetine HCl [Prozac 20 mg Capsule] 20 mg PO DAILY 12/13/18 Furosemide [Lasix 40 mg Tablet] 40 mg PO QAM 12/13/18 Liraglutide [Victoza 2-Ad] 1.8 mg SQ DAILY 12/13/18 Losartan Potassium [Cozaar 50 mg Tablet] 50 mg PO DAILY 12/13/18 Metformin HCl [Glucophage] 500 mg PO QAM 12/13/18 Metoprolol Succinate [Toprol XL 100 mg Tablet] 100 mg PO DAILY 12/13/18 Omeprazole 20 mg PO Q6AM 12/13/18 Potassium Chloride [Klor-Con M20] 20 meq PO DAILY 12/13/18 Prasugrel HCl [Effient 10 mg Tablet] 10 mg PO DAILY 12/13/18 Rosuvastatin Calcium [Crestor 20 mg Tablet] 20 mg PO DAILY 12/13/18 Tizanidine HCl [Zanaflex 4 mg Tablet] 4 mg PO TIDP PRN 12/13/18 History of Present Illness History of Present Illness: HARRISON CONDE is a 63 year old male who has been having headaches on the left. He lost sensation in his right arm and right leg abruptly. He had difficulty walking. He also had discoordination with his right arm. He has long-standing right facial numbness from his multiple sclerosis. He has a history of stroke in the past and with his symptoms presented to the emergency department. His strength began to improve slowly. He still has a sense of decreased sensation on the right and his arm and leg feel heavy. He denied vomiting but did have nausea this morning. He has had 5 myocardial infarctions and did not report any symptoms consistent with heart disease. With working diagnosis of ischemic stroke he was referred to the hospitalist service for admission. Hospital Course Hospital Course: With improvement of his symptoms and his history of MS, along with a negative evaluation for stroke, it was felt that most likely this was related to his MS. He said he had some persistent alteration of sensation in his right side, but he had full function of his extremities. His medications were not changed. He has a follow-up scheduled this afternoon with his neurologist in [place]. His labs and examination were reassuring and he was discharged in good condition. Physical Exam Vital Signs: Temp Pulse Resp BP Pulse Ox 97.6 F 76 20 115/72 98 12/14/18 09:09 12/14/18 09:09 12/14/18 09:09 12/14/18 09:09 12/14/18 09:09 Intake & Output 12/13/18 12/14/18 12/15/18 06:59 06:59 06:59 Intake Total 769 460 Balance 769 460 Weight 115.666 kg 110.5 kg General appearance: PRESENT: no acute distress, cooperative, obese, well- developed Respiratory exam: PRESENT: clear to auscultation [place], symmetrical, unlabored. ABSENT: accessory muscle use, rales, rhonchi, tachypnea, wheezes Cardiovascular exam: PRESENT: RRR, +S1, +S2, systolic murmur - 2/6 Pulses: PRESENT: normal radial pulses, +1 pedal pulses bilateral Vascular exam: PRESENT: normal capillary refill GI/Abdominal exam: PRESENT: normal bowel sounds, soft. ABSENT: distended, tenderness Extremities exam: ABSENT: joint swelling, pedal edema Musculoskeletal exam: PRESENT: full ROM, normal inspection Neurological exam: PRESENT: alert, awake, oriented to person, oriented to place, oriented to time, oriented to situation, CN II-XII grossly intact, motor sensory deficit - Slightly decreased sensation over the right abdomen arm and leg. Left sensation intact. Results Laboratory Results: 12/13/18 06:00 12/13/18 06:00 12/13/18 12/13/18 06:00 06:00 Creatine Kinase 295 H CK-MB (CK-2) 2.97 Troponin I < 0.012 Impressions: Chest X-Ray 12/13/18 06:09 IMPRESSION: No acute cardiopulmonary process copyright 2011 [employer]- All Rights Reserved Head CT 12/13/18 06:09 IMPRESSION: 1. No acute intracranial abnormality by CT criteria. This exam was performed according to our departmental dose-optimization program, which includes automated exposure control, adjustment of the mA and/or kV according to patient size and/or use of iterative reconstruction technique. Carotid Doppler Study 12/13/18 08:50 IMPRESSION: NO HEMODYNAMICALLY SIGNIFICANT STENOSIS. Head MRI 12/13/18 09:00 IMPRESSION: Old left inferior cerebellar infarct Old lacunar infarcts in the left thalamus, bilateral caudate, left lateral basal ganglia. Moderate small vessel disease in the mid yan. Multiple deep periventricular bifrontal and biparietal white matter lesions worrisome for a mass. No acute white matter lesions on today's imaging EVIDENCE OF ACUTE STROKE: NO. Qualifiers - * PATIENT BEING DISCHARGED WITH ANY OF THE FOLLOWING DIAGNOSIS: No Acute Heart Failure Is this a Heart Failure Patient?: No Plan Time Spent: Greater than 30 Minutes
== END 2018-12-14 09:40 | disposition home or self-care (01) | DRG 59 ==
LOC: ER 05:42 → EH 07:52 → 3S 08:35 → UNDODISIN 18:33
PROVIDERS: ADMIT Hospitalist; ATTEND Hospitalist
DX: G35 Multiple sclerosis (principal); I50.22 Chronic systolic (congestive) heart failure; I11.0 Hypertensive heart disease with heart failure; I25.10 Atherosclerotic heart disease of native coronary artery without angina pectoris; E11.9 Type 2 diabetes mellitus without complications; E66.9 Obesity, unspecified; E78.5 Hyperlipidemia, unspecified; J44.9 Chronic obstructive pulmonary disease, unspecified; K21.9 Gastro-esophageal reflux disease without esophagitis; L40.9 Psoriasis, unspecified; Z66 Do not resuscitate; R51 Headache; R26.0 Ataxic gait; R29.703 NIHSS score 3; F17.200 Nicotine dependence, unspecified, uncomplicated; Z68.39 Body mass index [BMI] 39.0-39.9, adult; Z79.84 Long term (current) use of oral hypoglycemic drugs; Z79.82 Long term (current) use of aspirin; I25.2 Old myocardial infarction; Z86.73 Personal history of transient ischemic attack (TIA), and cerebral infarction without residual deficits; Z95.5 Presence of coronary angioplasty implant and graft; Z82.49 Family history of ischemic heart disease and other diseases of the circulatory system; Z88.8 Allergy status to other drugs, medicaments and biological substances
CPT/HCPCS: 36415; 70450; 70551; 71045; 80053; 82550; 82553; 82962; 84484; 85025; 85610; 85730; 93005; 93010; 93880; J1644; J3490

== ENCOUNTER → 2020-04-17 | Outpatient (CLI) | payer MEDICARE, BC ==
--- NOTE | 2020-04-17 13:00 | RADIOLOGY REPORT (SQ) ---
EXAM DESCRIPTION: U/S THYROID/SFT TISS HD NECK IMAGES COMPLETED DATE/TIME: 04/17/2020 11:54 am REASON FOR STUDY: R22.9 LOCALIZED SWELLING, MASS AND LUMP, UNSPECIFIED R22.9 LOCALIZED SWELLING, MA SS AND LUMP, UNSPECIFIED COMPARISON: None. TECHNIQUE: Dynamic and static cornelius-scale images acquired of the thyroid gland. Selected additional c olor/power Doppler images recorded. All images stored to PACS. LIMITATIONS: None. FINDINGS: Sonographic imaging of the area of concern left shoulder shows echogenic focus measuring 6 x 13 x 5 mm. There is no significant vascularity. This appears to be in the region of the trapeziu s muscle. There is no history of trauma. IMPRESSION: Small air echogenic lesion in the region of the left trapezius muscle, likely lipoma. R ecommend six-month follow-up ultrasound of this area. TECHNICAL DOCUMENTATION: JOB ID: [id number] 2010 [employer]- All Rights Reserved Reading location - IP/workstation name: [email or web address]
== END ==
LOC: WI 10:36
PROVIDERS: ATTEND Physician Assistant
DX: R22.42 Localized swelling, mass and lump, left lower limb (principal)
CPT/HCPCS: 76536